=== PATIENT | male | born 1990 | race African-American/Black ===

== ENCOUNTER 2017-01-08 08:14 | Emergency (ER) | payer BC ==
[~2017-01-08] VITALS: Ht 193 cm; Wt 73.0 kg
[2017-01-08 08:18] VITALS: BP 122/77
[2017-01-08] MEDS ORDERED: IBUPROFEN 800MG TABLET PO ONE (08:30)
== END 2017-01-08 10:04 | disposition home or self-care (01) ==
LOC: ER 08:38
DX: S62.309A Unspecified fracture of unspecified metacarpal bone, initial encounter for closed fracture (principal); W22.8XXA Striking against or struck by other objects, initial encounter; Y93.51 Activity, roller skating (inline) and skateboarding; Y92.9 Unspecified place or not applicable; Y99.8 Other external cause status
CPT/HCPCS: 29125; 73130; 99284

== ENCOUNTER 2022-12-10 04:06 | Emergency (ER) | payer BC, MEDICAID ==
[~2022-12-10] VITALS: Ht 193 cm; Wt 77.9 kg
[2022-12-10 04:27] VITALS: BP 168/104
[2022-12-10] MEDS ORDERED: IBUPROFEN 400MG TABLET PO ONE (08:00)
[2022-12-10] MEDS ORDERED: ACETAMINOPHEN 325MG TABLET PO ONE (08:00)
[2022-12-10] MEDS ORDERED: IBUP-2028 MT (09:22)
== END 2022-12-10 09:40 | disposition home or self-care (01) ==
LOC: ER 04:06
DX: M54.50 Low back pain, unspecified (principal)
CPT/HCPCS: 99283

== ENCOUNTER 2025-09-03 01:01 | Emergency (ER) | payer SELFPAY ==
[~2025-09-03] VITALS: Ht 195.6 cm; Wt 76.0 kg
[~2025-09-03 01:01] MED LIST: IBUP-2028 MT
[2025-09-03 01:07] VITALS: O2SAT 98
[2025-09-03 02:04] LABS: BASOPHILS % 0.7 % (0.0-2.0); EOSINOPHILS % 0.6 % (0.0-5.0); HEMATOCRIT. 38.8 % (42.0-52.0); HEMOGLOBIN. 12.8 g/dL (14.0-18.0); LYMPHOCYTES % 34.9 % (20.0-50.0); MEAN PLATELET VOLUME 7.8 fl (7.4-10.4); MONOCYTES % 9.4 % (2.0-8.0); NEUTROPHILS % 54.4 % (40.0-76.0); PLATELET 261 x1000/uL (130-400); RED BLOOD CELL COUNT 4.74 mill/uL (4.7-6.1); RED CELL DISTRIBUTION WIDTH 16.6 % (11.6-14.6)
[2025-09-03 02:17] LABS: CREATININE 1.5 mg/dL (0.6-1.3); PROTEIN TOTAL 6.8 g/dL (6.0-8.3); UREA NITROGEN BLOOD 10 mg/dL (9-23)
[2025-09-03 02:18] LABS: ASPARTATE AMINOTRANSFERASE 20 IU/L (<34)
[2025-09-03 02:19] LABS: BILIRUBIN TOTAL 0.6 mg/dL (0.1-1.0)
[2025-09-03] MEDS: FAMOTIDINE 20MG TABLET PO ONE (02:25)
[2025-09-03] MEDS: CHLORPROMAZINE HCL 25MG/1ML INJ IM ONE (02:29)
[2025-09-03] MEDS ORDERED: FAMO-135 MT (04:27)
[2025-09-03 04:42] VITALS: BP 140/95; PULSE 87; RESP 16; TEMP 36.8; O2SAT 100
[2025-09-03] MEDS ORDERED: IOHEXOL-300 100 ML BOTTLE ONE (07:24)
== END 2025-09-03 04:42 | disposition home or self-care (01) ==
LOC: ER 01:22
DX: R79.89 Other specified abnormal findings of blood chemistry (principal); R06.6 Hiccough; R10.13 Epigastric pain
CPT/HCPCS: 99285; 71260; 71045; 80053; 85025; 85379; 36415; 74177; 96372; Q9967; J3230